=== PATIENT | male | born 1955 | race Caucasian/White ===

== ENCOUNTER → 2017-05-28 | Outpatient (CLI) | payer BC ==
[~2017-05-28] MED LIST: ASPIR-TRIN325 M1 PO; CELEBREX200 MG PO; DIOVAN HCT 11 TABLET PO; FEOSOL325 MG PO; GABAPENTIN100 MG PO; LASIX40 MG PO; MIRALAX17 GM PO; MOTRIN800 MG PO; NORCO 5/3251 TABLET PO; ROXICODONE5 MG PO; SENOKOT S,PE1 TABLET PO; Vicodin,Lortab 5/500 PO
== END | disposition home or self-care (01) ==
LOC: NUC 05-24 10:00
DX: M47.895 Other spondylosis, thoracolumbar region (principal); M19.072 Primary osteoarthritis, left ankle and foot; M19.071 Primary osteoarthritis, right ankle and foot; R93.7 Abnormal findings on diagnostic imaging of other parts of musculoskeletal system; Z47.1 Aftercare following joint replacement surgery; Z96.651 Presence of right artificial knee joint
CPT/HCPCS: 78315; A9503